=== PATIENT | male | born 1950 ===

== ENCOUNTER 2022-10-13 21:05 | Emergency (ER) | payer OTHER ==
[2022-10-13] MEDS ORDERED: Carbidopa/Levodopa 25-250 mg Tablet PO SCH (21:30)
[2022-10-13] MEDS ORDERED: Aripiprazole 10 MG TAB PO SCH (21:30)
[2022-10-13 21:56] LABS: #Monocytes 0.8 10x3/uL (0.0-1.1); #Neutrophils 5.5 10x3/uL (1.5-8.4); %Basophils 0.3 % (0.0-2.0); %Eosinophils 0.5 % (0.0-6.0); %Lymphocytes 19.6 % (18.0-47.0); %Monocytes 9.8 % (0.0-10.0); %Neutrophils 69.5 % (40.0-75.0); Hemoglobin 11.9 g/dL (13.5-17.5); Mean Corpuscular HGB CONC 33.1 g/dL (32.0-36.0); Mean Corpuscular Hemoglobin 29.4 pg (27.0-33.0); Mean Corpuscular Volume 88.9 fl (81.2-95.1); Mean Platelet Volume 9.1 fl (7.4-10.4); Platelet Count 182 10x3/uL (150-450); RBC Distribution Width 13.7 % (11.5-14.5); Red Blood Cell (RBC) Count 4.05 10x6/uL (4.32-5.72); White Blood Cell (WBC) Count 7.9 10x3/uL (3.5-10.5)
[2022-10-13 22:19] LABS: ALT (SGPT) Less than 6 U/L (8-55); AST (SGOT) 15 U/L (5-34); Albumin 4.2 g/dL (3.4-4.8); Alkaline Phosphatase 74 U/L (40-110); Anion Gap 16 mmol/L (10-20); BUN (Urea Nitrogen) 15 mg/dL (8.4-25.7); Bilirubin, Total 0.3 mg/dL (0.2-1.2); CK (CPK) 145 U/L (30-200); Calc. Creatinine Clearance 0 mL/min (70-130); Calcium 9.1 mg/dL (7.8-10.44); Carbon Dioxide 21 mmol/L (23-31); Chloride 106 mmol/L (98-107); Estimated GFR 66; Globulin 3.2 g/dL (2.4-3.5); Glucose 117 mg/dL (83-110); Magnesium 1.8 mg/dL (1.6-2.6); Potassium 3.6 mmol/L (3.5-5.1); Protein, Total 7.4 g/dL (5.8-8.1); Sodium 139 mmol/L (136-145)
== END 2022-10-13 22:50 | disposition home or self-care (01) ==
LOC: CSHERS 21:05 → EEVIPCON 21:05 → CSHERS 22:50
DX: G20 Parkinson's disease (principal); I10 Essential (primary) hypertension; I44.0 Atrioventricular block, first degree; Z91.14 Patient's other noncompliance with medication regimen
CPT/HCPCS: 80053; 82550; 83735; 85025; 93005; 94760